=== PATIENT | male | born 1990 | race Caucasian/White ===

== ENCOUNTER 2016-11-30 14:11 | Emergency (ER) | payer OTHER ==
[~2016-11-30] VITALS: Ht 185.4 cm; Wt 131.5 kg
[~2016-11-30 14:11] MED LIST: ALBU8.5H3 INH; AZIT500T3 PO; PRED20TA PO; PRED50TA PO
[2016-11-30 14:14] VITALS: Ht 185.4 cm; Wt 131.5 kg
[2016-11-30] MEDS ORDERED: GUAI-637 PO (14:49)
[2016-11-30] MEDS ORDERED: OSLT75C PO (14:49)
[2016-11-30] MEDS ORDERED: FLUT9.9S NASAL (14:49)
[2016-11-30] MEDS ORDERED: LORA10TA3 PO (14:49)
[2016-11-30 15:04] VITALS: BP 118/77; PULSE 86; RESP 20; TEMP 98.3
--- NOTE | 2016-11-30 16:00 | ERD ---
ER Documentation Chief Complaint Date/Time DATE: 11/30/16 TIME: 15:55 Chief Complaint fever, bodyaches; cough x 2 days HPI This is a 26-year-old male who presents emergency department for fever, cough, rhinitis, rhinorrhea, generalized body aches and sore throat 2 days. Patient states symptoms started yesterday and worsened today. Patient did not check temperature at home however states he felt warm. Cough is dry nonproductive. No stridor or labored breathing. No shortness breath or difficulty breathing. No wheezing. Patient denies chest pain or chest pressure. Patient has sore throat however no difficulty swallowing or drooling. No sick contacts. Patient has history of asthma and uses his inhaler as needed. ROS All systems reviewed and are negative except as per history of present illness. Medications Home Meds Active Scripts Fluticasone Propionate (Flonase Allergy Relief) 9.9 Ml [place].susp, 1 SPRAY NASAL DAILY, #1 BOTTLE TO EACH NOSTRIL Prov:ED DEL VALLE NP 11/30/16 Loratadine* (Loratadine*) 10 Mg Tablet, 10 MG PO DAILY, #10 TAB Prov:ED DEL VALLE NP 11/30/16 Guaifenesin* (Robitussin*) 100 Mg/5 Ml Syrup, 200 MG PO Q4H Y for COUGH, #240 ML Prov:ED DEL VALLE NP 11/30/16 Oseltamivir Phosphate* (Tamiflu*) 75 Mg Capsule, 75 MG PO BID for 5 Days, CAP Prov:ED DEL VALLE NP 11/30/16 Albuterol Sulfate* (Proair HFA*) 8.5 Gm Hfa.aer.ad, 2 PUFF INH Q4, #1 INHALER Prov:ED DEL VALLE NP 06/15/16 Prednisone* (Prednisone*) 20 Mg Tab, 40 MG PO DAILY for 4 Days, TAB Prov:ED DEL VALLE NP 06/15/16 Prednisone* (Prednisone*) 50 Mg Tablet, 50 MG PO DAILY, #5 TAB Prov:ABBY PAINTER 11/25/15 Azithromycin* (Zithromax*) 500 Mg Tablet, 500 MG PO DAILY for 5 Days, TAB Prov:ABBY PAINTER 11/25/15 Albuterol Sulfate* (Proair HFA*) 8.5 Gm Hfa.aer.ad, 2 PUFF INH Q4, #1 INHALER Prov:ABBY PAINTER 11/25/15 PMhx/Soc Asthma History of Surgery: No Anesthesia Reaction: No Hx Neurological Disorder: No Hx Respiratory Disorders: Yes Hx Cardiac Disorders: No Hx Psychiatric Problems: No Hx Miscellaneous Medical Probl: No Hx Alcohol Use: No Hx Substance Use: No Hx Tobacco Use: No Physical Exam Vitals Vital Signs Date Time Temp Pulse Resp B/P Pulse Ox O2 Delivery O2 Flow Rate FiO2 11/30/16 15:04 98.3 86 20 118/77 98 Room Air 11/30/16 14:14 99.5 105 18 171/86 98 Physical Exam Const: Alert, [id number], oriented to person place and time. Head: Atraumatic Eyes: Normal Conjunctiva ENT: Normal External Ears, Nose and Mouth. TMs normal bilaterally. No erythema or exudate posterior pharynx. Neck: Full range of motion..~ No meningismus. Resp: Clear to auscultation bilaterally. No wheezing, rhonchi or crackles. Cardio: Regular rate and rhythm, no murmurs Abd: Soft, non tender, non distended. Normal bowel sounds Skin: No petechiae or rashes Back: No midline or flank tenderness Ext: No cyanosis, or edema Neur: Awake and alert Psych: Normal Mood and Affect Procedures/MDM MDM: 26-year-old male presents emergency department for influenza-like symptoms. Patient has fever, generalized body aches, cough, sore throat, rhinitis and rhinorrhea. No signs or symptoms of respiratory distress. Patient is talking in complete sentences. No chest pain or chest pressure. No wheezing. Temp of 99.5F upon arrival to ED. Oxygen saturation 98% on room air. Blood pressure 118/77 upon discharge. Patient appears stable and appropriate for outpatient management. Low suspicion for pneumonia, pleural effusion, otitis media, strep pharyngitis, epiglottitis and pneumothorax. Patient likely has influenza versus URI, viral. Patient is appropriate for outpatient management will be given prescription for Tamiflu, ibuprofen, Flonase and loratadine. Instructed patient to follow-up with primary care provider in the next 2-3 days for reassessment and additional management. Return to ED for any high fever, chest pain, difficulty breathing, shortness breath, wheezing, vomiting, diarrhea, abdominal pain or any new or worsening symptoms. Patient verbalizes understanding. All questions answered at discharge. Departure Diagnosis: Primary Impression: Influenza-like symptoms Condition: Stable Patient Instructions: Influenza (Adult) Referrals: [facility] YOU HAVE RECEIVED A MEDICAL SCREENING EXAM AND THE RESULTS INDICATE THAT YOU DO NOT HAVE A CONDITION THAT REQUIRES URGENT TREATMENT IN THE EMERGENCY DEPARTMENT. FURTHER EVALUATION AND TREATMENT OF YOUR CONDITION CAN WAIT UNTIL YOU ARE SEEN IN YOUR DOCTORS OFFICE WITHIN THE NEXT 1-2 DAYS. IT IS YOUR RESPONSIBILITY TO MAKE AN APPOINTMENT FOR FOLOW-UP CARE. IF YOU HAVE A PRIMARY DOCTOR --you should call your primary doctor and schedule an appointment IF YOU DO NOT HAVE A PRIMARY DOCTOR YOU CAN CALL OUR PHYSICIAN REFERRAL HOTLINE AT IF YOU CAN NOT AFFORD TO SEE A PHYSICIAN YOU CAN CHOSE FROM THE FOLLOWING [facility] [address] [facility] [address] [facility] [address] [facility] [address] [facility] [address] [facility]. [address] [facility]. [facility] YOU HAVE RECEIVED A MEDICAL SCREENING EXAM AND THE RESULTS INDICATE THAT YOU DO NOT HAVE A CONDITION THAT REQUIRES URGENT TREATMENT IN THE EMERGENCY DEPARTMENT. FURTHER EVALUATION AND TREATMENT OF YOUR CONDITION CAN WAIT UNTIL YOU ARE SEEN IN YOUR DOCTORS OFFICE WITHIN THE NEXT 1-2 DAYS. IT IS YOUR RESPONSIBILITY TO MAKE AN APPOINTMENT FOR FOLOW-UP CARE. IF YOU HAVE A PRIMARY DOCTOR --you should call your primary doctor and schedule and appointment IF YOU DO NOT HAVE A PRIMARY DOCTOR YOU CAN CALL OUR PHYSICIAN REFERRAL HOTLINE AT . IF YOU CAN NOT AFFORD TO SEE A PHYSICIAN YOU CAN CHOSE FROM THE FOLLOWING [facility] INSTITUTIONS: [facility] [address] [place] [address] [facility] [address] [place] [address] [facility] [address] [place] [address] Additional Instructions: Call your primary care doctor TOMORROW for an appointment during the next 2-3 days.See the doctor sooner or return here if your condition worsens before your appointment time. Return to ED for any high fever, chest pain, difficulty breathing, shortness breath, wheezing, vomiting, diarrhea, abdominal pain or any new or worsening symptoms. ED DEL VALLE NP Nov 30, 2016 16:00
== END 2016-11-30 15:05 | disposition home or self-care (01) ==
LOC: FTE 14:11
DX: R50.9 Fever, unspecified (principal); R05 Cough; J02.9 Acute pharyngitis, unspecified; R52 Pain, unspecified; J34.89 Other specified disorders of nose and nasal sinuses
CPT/HCPCS: 99283

== ENCOUNTER 2016-12-09 13:01 | Emergency (ER) | payer OTHER ==
[~2016-12-09] VITALS: Ht 185.4 cm; Wt 133.0 kg
[~2016-12-09 13:01] MED LIST changes: +FLUT9.9S NASAL; +GUAI-637 PO; +LORA10TA3 PO; +OSLT75C PO
[2016-12-09 13:02] VITALS: Ht 185.4 cm; Wt 133.0 kg
[2016-12-09] MEDS ORDERED: IBUP-1542 PO (13:38)
--- NOTE | 2016-12-09 14:11 | ERA ---
ER Documentation Chief Complaint Date/Time DATE: 12/09/16 TIME: 14:08 Chief Complaint COUGH, SORE THROAT AND BODYACHE X 1 WEEK HPI Patient is a 26-year-old male complaining of cough, pharyngitis lasting for 2 weeks. Patient was seen 9 days ago in the ER and diagnosed with influenza. Patient said he is taking all the medication and has had some relief of symptoms including fever. Pt denies weight loss, fevers, nausea, vomiting, diarrhea, constipation, hyperhidrosis, rigors, fatigue, dyspnea, chest pain on exertion, chest pain, malaise or depression. There are no other associated manifestations. Patient has taken Tylenol with moderate relief. Patient is also requesting a school note. ROS All systems reviewed and are negative except as per history of present illness. Medications Home Meds Active Scripts Ibuprofen* (Motrin*) 600 Mg Tab, 600 MG PO Q6H Y for PAIN AND OR ELEVATED TEMP, #30 TAB Prov:VINICIUS NATHAN PA-C 12/09/16 Fluticasone Propionate (Flonase Allergy Relief) 9.9 Ml [place].susp, 1 SPRAY NASAL DAILY, #1 BOTTLE TO EACH NOSTRIL Prov:ED DEL VALLE NP 11/30/16 Loratadine* (Loratadine*) 10 Mg Tablet, 10 MG PO DAILY, #10 TAB Prov:ED DEL VALLE NP 11/30/16 Guaifenesin* (Robitussin*) 100 Mg/5 Ml Syrup, 200 MG PO Q4H Y for COUGH, #240 ML Prov:ED DEL VALLE NP 11/30/16 Oseltamivir Phosphate* (Tamiflu*) 75 Mg Capsule, 75 MG PO BID for 5 Days, CAP Prov:ED DEL VALLE NP 11/30/16 Albuterol Sulfate* (Proair HFA*) 8.5 Gm Hfa.aer.ad, 2 PUFF INH Q4, #1 INHALER Prov:ED DEL VALLE NP 06/15/16 Prednisone* (Prednisone*) 20 Mg Tab, 40 MG PO DAILY for 4 Days, TAB Prov:ED DEL VALLE NP 06/15/16 Prednisone* (Prednisone*) 50 Mg Tablet, 50 MG PO DAILY, #5 TAB Prov:ABBY PAINTER 11/25/15 Azithromycin* (Zithromax*) 500 Mg Tablet, 500 MG PO DAILY for 5 Days, TAB Prov:ABBY PAINTER 11/25/15 Albuterol Sulfate* (Proair HFA*) 8.5 Gm Hfa.aer.ad, 2 PUFF INH Q4, #1 INHALER Prov:ABBY PAINTER 11/25/15 Allergies Allergies: Coded Allergies: No Known Allergy (Unverified , 12/09/16) PMhx/Soc Medical and Surgical Hx: pt denies Medical Hx, pt denies Surgical Hx History of Surgery: No Anesthesia Reaction: No Hx Neurological Disorder: No Hx Respiratory Disorders: Yes Hx Cardiac Disorders: No Hx Psychiatric Problems: No Hx Miscellaneous Medical Probl: No Hx Alcohol Use: No Hx Substance Use: No Hx Tobacco Use: No Smoking Status: Never smoker Physical Exam Vitals Vital Signs Date Time Temp Pulse Resp B/P Pulse Ox O2 Delivery O2 Flow Rate FiO2 12/09/16 13:02 97.7 91 18 144/68 98 Physical Exam Const: [] Head: Atraumatic Eyes: Normal Conjunctiva ENT: Normal External Ears, Nose and Mouth. Neck: Full range of motion..~ No meningismus. Resp: Clear to auscultation bilaterally Cardio: Regular rate and rhythm, no murmurs Abd: Soft, non tender, non distended. Normal bowel sounds Skin: No petechiae or rashes Back: No midline or flank tenderness Ext: No cyanosis, or edema Neur: Awake and alert Psych: Normal Mood and Affect Procedures/MDM Patient is a obese healthy-appearing 26-year-old male who presents with cough and pharyngitis for the past 2 weeks. Was recently seen in the ER and diagnosed with influenza. Patient has taken medications and influenza symptoms besides the cough and pharyngitis have subsided. At this time there is no management of the airway and no difficulty breathing. Physical exam was unremarkable except for an erythematous posterior oropharynx. Patient's tonsils were slightly inflamed. There are no exudates seen. Patient's lungs were clear in all lung molina bilaterally. The most likely diagnosis is a cough of viral origin most likely acute bronchitis. There are no GI symptoms in the reason for me to suspect any cardiac involvement at this time. Departure Diagnosis: Primary Impression: Pharyngitis, acute Qualified Code: J02.9 - Acute pharyngitis, unspecified etiology Additional Impressions: Acute bronchitis Qualified Code: J20.9 - Acute bronchitis, unspecified organism Pharyngitis Qualified Code: J02.9 - Pharyngitis, unspecified etiology Condition: Stable Patient Instructions: Acute Bronchitis Additional Instructions: Return to the emergency department if symptoms worsen. VINICIUS NATHAN PA-C Dec 09, 2016 14:11
== END 2016-12-09 14:25 | disposition home or self-care (01) ==
LOC: FTE 13:01
DX: J20.9 Acute bronchitis, unspecified (principal)
CPT/HCPCS: 99283

== ENCOUNTER 2017-06-21 06:39 | Emergency (ER) | payer OTHER ==
[~2017-06-21] VITALS: Ht 177.8 cm; Wt 135.5 kg
[~2017-06-21 06:39] MED LIST changes: +IBUP-1542 PO
[2017-06-21 06:41] VITALS: Ht 177.8 cm; Wt 135.5 kg
[2017-06-21] MEDS ORDERED: LIDOCAINE 2% (MDV) 20 ML INJ INJ ONE (07:30)
[2017-06-21] MEDS ORDERED: DEXAMETHASONE 10 MG/ML 1 ML INJ PO ONE (07:30)
[2017-06-21] MEDS ORDERED: AZITHROMYCIN 250 MG TAB PO ONE (07:30)
[2017-06-21] MEDS ORDERED: CEFTRIAXONE 250 MG INJ IM ONE (07:30)
[2017-06-21] MEDS ORDERED: PENI500T PO (08:10)
[2017-06-21] MEDS ORDERED: IBUP-1542 PO (08:10)
--- NOTE | 2017-06-30 16:55 | ERD ---
ER Documentation Chief Complaint Chief Complaint st,cough since thursday (DIAMANTE WILLOUGHBY) HPI This is a 26-year-old male presents to the ER with a sore throat and cough since Thursday. Sore throat is severe, worse whenever he swallows. Patient is also worried that he may have an STD. Had unprotected sexual intercourse, however he denies any symptoms such as discharge from his penis or urinary frequency or dysuria. Patient states he has also had a fever, nasal taking Tylenol however it has not resolved. Denies any chest pain, shortness of breath. (DIAMANTE WILLOUGHBY) ROS 12 point review of systems was done, all negative except per HPI. (DIAMANTE WILLOUGHBY) Medications Home Meds Active Scripts Ibuprofen* (Motrin*) 600 Mg Tab, 600 MG PO Q6, #30 TAB Prov:DIAMANTE WILLOUGHBY 06/21/17 Penicillin V Potassium* (Penicillin V K*) 500 Mg Tab, 500 MG PO BID for 10 Days , TAB Prov:DIAMANTE WILLOUGHBY 06/21/17 Ibuprofen* (Motrin*) 600 Mg Tab, 600 MG PO Q6H Y for PAIN AND OR ELEVATED TEMP, #30 TAB Prov:VINICIUS NATHAN PA-C 12/09/16 Fluticasone Propionate (Flonase Allergy Relief) 9.9 Ml [place].susp, 1 SPRAY NASAL DAILY, #1 BOTTLE TO EACH NOSTRIL Prov:ED DEL VALLE NP 11/30/16 Loratadine* (Loratadine*) 10 Mg Tablet, 10 MG PO DAILY, #10 TAB Prov:ED DEL VALLE NP 11/30/16 Guaifenesin* (Robitussin*) 100 Mg/5 Ml Syrup, 200 MG PO Q4H Y for COUGH, #240 ML Prov:ED DEL VALLE NP 11/30/16 Oseltamivir Phosphate* (Tamiflu*) 75 Mg Capsule, 75 MG PO BID for 5 Days, CAP Prov:ED DEL VALLE NP 11/30/16 Albuterol Sulfate* (Proair HFA*) 8.5 Gm Hfa.aer.ad, 2 PUFF INH Q4, #1 INHALER Prov:ED DEL VALLE NP 06/15/16 Prednisone* (Prednisone*) 20 Mg Tab, 40 MG PO DAILY for 4 Days, TAB Prov:ED DEL VALLE NP 06/15/16 Prednisone* (Prednisone*) 50 Mg Tablet, 50 MG PO DAILY, #5 TAB Prov:ABBY PAINTER 11/25/15 Azithromycin* (Zithromax*) 500 Mg Tablet, 500 MG PO DAILY for 5 Days, TAB Prov:ABBY PAINTER 11/25/15 Albuterol Sulfate* (Proair HFA*) 8.5 Gm Hfa.aer.ad, 2 PUFF INH Q4, #1 INHALER Prov:ABBY PAINTER 11/25/15 Allergies Allergies: Coded Allergies: No Known Allergy (Unverified , 12/09/16) PMhx/Soc History of Surgery: No Anesthesia Reaction: No Hx Neurological Disorder: No Hx Respiratory Disorders: Yes Hx Cardiac Disorders: No Hx Psychiatric Problems: No Hx Miscellaneous Medical Probl: No Hx Alcohol Use: No Hx Substance Use: No Hx Tobacco Use: No (DIAMANTE WILLOUGHBY) Physical Exam Physical Exam GENERAL: The patient is well-developed, well-nourished, in no acute distress. NECK: Cervical spine is non tender with no step off. Supple, no nuchal rigidity HEENT: Atraumatic. Pupils equal, round and reactive to light. Extraocular muscles are grossly intact. Conjunctivae pink, no discharge. Bilateral tympanic membranes are clear with no evidence of erythema, effusion or dulling of the light reflex. Tonsilar erythema with no exudates or uvular deviation. Clear rhinorrhea. RESPIRATORY: Clear to auscultation bilaterally. There are no rales, wheezes or rhonchi. HEART: Regular rate and rhythm. No murmurs, clicks, rubs or gallops. EXTREMITIES: No clubbing or cyanosis. Full range of motion. Grossly neurovascularly intact. NEUROLOGIC: Alert and oriented. Cranial nerves II through XII are intact. SKIN: There is no rash. The skin is warm and dry. (DIAMANTE WILLOUGHBY) Results 24 hrs Current Medications Medications (Trade) Dose Ordered Sig/Johnathon Route PRN Reason Start Time Stop Time Status Last Admin Dose Admin Azithromycin (Zithromax) 1,000 mg ONCE ONCE PO 06/21/17 07:30 06/21/17 07:31 DC 06/21/17 07:30 Ceftriaxone Sodium (Rocephin) 250 mg ONCE ONCE IM 06/21/17 07:30 06/21/17 07:31 DC 06/21/17 07:30 Lidocaine (Xylocaine 2% (Mdv) 20 ml) 20 ml ONCE ONCE INJ 06/21/17 07:30 10 07:31 DC 06/21/17 07:30 Dexamethasone (Decadron) 10 mg ONCE ONCE PO 06/21/17 07:30 06/21/17 07:31 DC 06/21/17 07:30 (MAGALY SHEPARD MD) Procedures/MDM This is a 26-year-old male presents to the ER with sore throat and cough, patient did test positive for strep throat he was given Decadron in the ER for swelling of his tonsils with no complications. Suspicion for peritonsillar abscess or retropharyngeal abscess is low, patient does not have any uvular deviation or kissing tonsils. He was prophylactically treated for chlamydia and gonorrhea with no complications. Patient is afebrile and well-appearing. Needs to follow-up with his primary care doctor within 1-2 days return to ER sooner if symptoms worsen. My medical decision making shared with the patient he understands and agrees with plan. (DIAMANTE WILLOUGHBY) Departure Diagnosis: Primary Impression: Strep throat Condition: Stable Patient Instructions: Strep Throat Additional Instructions: Call your primary care doctor TOMORROW for an appointment during the next 1-2 days.See the doctor sooner or return here if your condition worsens before your appointment time. DIAMANTE WILLOUGHBY Jun 30, 2017 16:55 MAGALY SHEPARD MD Jun 30, 2017 21:50
== END 2017-06-21 08:29 | disposition home or self-care (01) ==
LOC: FTE 06:39
DX: J02.0 Streptococcal pharyngitis (principal)
CPT/HCPCS: 87880; 96372; J0696; J1100; Z7502; Z7610

== ENCOUNTER 2017-08-01 16:48 | Emergency (ER) | payer OTHER ==
[~2017-08-01] VITALS: Ht 185.4 cm; Wt 135.0 kg
[~2017-08-01 16:48] MED LIST changes: +PENI500T PO
[2017-08-01 16:50] VITALS: Ht 185.4 cm; Wt 135.0 kg
--- NOTE | 2017-08-01 17:29 | ERD ---
ER Documentation Chief Complaint Chief Complaint pt bib family c/o fall last night at work c/o lower back pain HPI This 26 Yo male pt reports mechanical slip and fall last night at work. 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 pt hit a rigo with is right lumbar. now right low back pain and coccyx pain with movement and rest. pain improved with pot and IBU, pt need help getting up from the floor and was sent home in a uber . ROS All systems reviewed and are negative except as per history of present illness. Medications Home Meds Active Scripts Ibuprofen* (Motrin*) 600 Mg Tab, 600 MG PO Q6, #30 TAB Prov:BEBO CARDENASODY 08/01/17 Ibuprofen* (Motrin*) 600 Mg Tab, 600 MG PO Q6, #30 TAB Prov:DIAMANTE WILLOUGHBY 06/21/17 Penicillin V Potassium* (Penicillin V K*) 500 Mg Tab, 500 MG PO BID for 10 Days , TAB Prov:DIAMANTE WILLOUGHBY 06/21/17 Ibuprofen* (Motrin*) 600 Mg Tab, 600 MG PO Q6H Y for PAIN AND OR ELEVATED TEMP, #30 TAB Prov:VINICIUS NATHAN PA-C 12/09/16 Fluticasone Propionate (Flonase Allergy Relief) 9.9 Ml [place].susp, 1 SPRAY NASAL DAILY, #1 BOTTLE TO EACH NOSTRIL Prov:ED DEL VALLE NP 11/30/16 Loratadine* (Loratadine*) 10 Mg Tablet, 10 MG PO DAILY, #10 TAB Prov:ED DEL VALLE NP 11/30/16 Guaifenesin* (Robitussin*) 100 Mg/5 Ml Syrup, 200 MG PO Q4H Y for COUGH, #240 ML Prov:ED DEL VALLE NP 11/30/16 Oseltamivir Phosphate* (Tamiflu*) 75 Mg Capsule, 75 MG PO BID for 5 Days, CAP Prov:ED DEL VALLE NP 11/30/16 Albuterol Sulfate* (Proair HFA*) 8.5 Gm Hfa.aer.ad, 2 PUFF INH Q4, #1 INHALER Prov:ED DEL VLALE NP 06/15/16 Prednisone* (Prednisone*) 20 Mg Tab, 40 MG PO DAILY for 4 Days, TAB Prov:ED DEL VALLEShade PADILLA 06/15/16 Prednisone* (Prednisone*) 50 Mg Tablet, 50 MG PO DAILY, #5 TAB Prov:ABBY PAINTER 11/25/15 Azithromycin* (Zithromax*) 500 Mg Tablet, 500 MG PO DAILY for 5 Days, TAB Prov:ABBY PAINTER 11/25/15 Albuterol Sulfate* (Proair HFA*) 8.5 Gm Hfa.aer.ad, 2 PUFF INH Q4, #1 INHALER Prov:ABBY PAINTER 11/25/15 Allergies Allergies: Coded Allergies: coconut (Verified Allergy, Unknown, 08/01/17) PMhx/Soc Medical and Surgical Hx: pt denies Medical Hx, pt denies Surgical Hx History of Surgery: No Anesthesia Reaction: No Hx Neurological Disorder: No Hx Respiratory Disorders: Yes Hx Cardiac Disorders: No Hx Psychiatric Problems: No Hx Miscellaneous Medical Probl: No Hx Alcohol Use: No Hx Substance Use: Yes (marijuana, last use 07/31/17) Hx Tobacco Use: No Smoking Status: Never smoker Physical Exam Vitals Vital Signs Date Time Temp Pulse Resp B/P Pulse Ox O2 Delivery O2 Flow Rate FiO2 08/01/17 16:50 97.7 65 16 137/83 97 Vitals stable, triage notes reviewed Physical Exam Const: Well-nourished well-appearing well-hydrated 26-year-old male patient no acute distress Head: Atraumatic hematoma, abrasion, or laceration Neck: Full range of motion Resp: Respirations even and unlabored, no respiratory distress Skin: No petechiae or rashes no ecchymosis, abrasion, laceration Back Exam: Skin: [No bruising or rash] Compartments: [Soft] Motor: [Normal flexion and extension of bilateral hip/knee/ ankle/foot], straight leg rises even equivocal at 80 Sensation: [Intact to light touch throughout] Bones: [No midline TTP] verbal paraspinal tenderness on right lumbar Ext: No cyanosis, or edema Neur: Awake and alert Psych: Normal Mood and Affect Results 24 hrs Current Medications Medications (Trade) Dose Ordered Sig/Johnathon Route PRN Reason Start Time Stop Time Status Last Admin Dose Admin Ibuprofen (Motrin) 600 mg ONCE ONCE PO 08/01/17 17:30 08/01/17 17:31 DC 08/01/17 17:41 Acetaminophen (Tylenol Tab) 650 mg ONCE ONCE PO 08/01/17 17:30 08/01/17 17:31 DC 08/01/17 17:41 Dexamethasone (Decadron) 10 mg ONCE ONCE PO 08/01/17 20:30 08/01/17 20:31 DC 08/01/17 20:15 Procedures/MDM PROCEDURE: XR Lumbar Spine. CLINICAL INDICATION: Fall, pain TECHNIQUE: AP, lateral and cone-down lateral view of the lumbar spine were obtained. COMPARISON: No prior studies are available for comparison. FINDINGS: There is straightening of the lumbar spine. There is normal vertebral mineralization and alignment. No fracture or subluxation is seen. The disc spaces are normal in appearance. The posterior elements are unremarkable. The soft tissues appear normal. IMPRESSION: Straightening of the lumbar spine. No evidence of fracture. Electronically viewed and signed by Claudio Regan, Physician on 08/01/2017 18: 51 26-year-old male patient presents to emergency department for evaluation of back pain, patient reportedly injured himself at work yesterday, missed a step, spleen legs apart landing on his coccyx and hitting a rigo with the left side of his lumbar spine. Patient has pain regardless of movement, worse with sitting and standing, straight leg rises are even equivocal at 80 bilaterally. Emergency room course today includes radiographic imaging to rule out any spinal fracture, and pain control with Tylenol and ibuprofen, patient x-ray positive for straightening suggestive of spasm, plan to treat with 10 mg of dexamethasone before discharge, sent home with ibuprofen, follow-up with primary care physician for referral to physical therapy. Return to emergency department for alteration in bowel or bladder, difficulty ambulating. Patient is stable with no new complaints during ER course, clinically there is no current evidence to suggest cauda equina syndrome, spinal abscess, vertebral fracture, compression fracture or any other emergent condition appearing to require further evaluation or hospitalization. I feel the patient is stable for discharge at this time. I have discussed results, examination findings, the treatment plan with the patient and family present prior to discharge. Indications for emergent reevaluation, side effects of medication were also discussed. All questions were answered. Patient verbalizes understanding and agrees with plan of care. Departure Diagnosis: Primary Impression: Lumbar sprain Encounter type: initial encounter Qualified Code: S33.5XXA - Lumbar sprain, initial encounter Condition: Good Patient Instructions: Back Sprain/Strain Additional Instructions: Thank you for for coming to [facility] for your care today. Please ask your nurse or provider if you have questions about your care today and do not leave until all your questions have been answered. Please use any medications given as directed and follow-up with your doctor (or the doctor you were referred to) in the next 2-3 days. If you do not have a primary care doctor you may follow up at the [facility] (listed below). You may also use motrin and tylenol as needed for fever and/or pain unless instructed otherwise by your provider or nurse. Indications for more urgent follow-up have been discussed, but you may return to the Emergency Department at ANY time for any worrisome or worsening symptoms. If you have abdominal pain, please know that no test or exam you received is perfect and you should follow up within 8 hours for continued pain. If you had any imaging studies today, such as an X-Ray or CT Scan, these studies will be reviewed later by a radiologist. You will be called if there are important findings that were not identified today, so make sure the contact information you provided at registration is correct. If you received any narcotic pain control medicine today, such as Vicodin, Morphine or Dilaudid, your coordination and judgment may be affected for a number of hours. Please do not drive or operate heavy machinery, and you may want someone to assist you at home. If you were given a prescription for narcotic medication, be aware that it is very addictive- use sparingly and only if necessary. NAIMA CARDENAS Aug 01, 2017 17:29
[2017-08-01] MEDS ORDERED: IBUPROFEN 600 MG TAB PO ONE (17:30)
[2017-08-01] MEDS ORDERED: ACETAMINOPHEN 325 MG TAB PO ONE (17:30)
--- NOTE | 2017-08-01 18:51 | RADRPT ---
PROCEDURE: XR Lumbar Spine. CLINICAL INDICATION: Fall, pain TECHNIQUE: AP, lateral and cone-down lateral view of the lumbar spine were obtained. COMPARISON: No prior studies are available for comparison. FINDINGS: There is straightening of the lumbar spine. There is normal vertebral mineralization and alignment. No fracture or subluxation is seen. The disc spaces are normal in appearance. The posterior elements are unremarkable. The soft tissues appear normal. IMPRESSION: Straightening of the lumbar spine. No evidence of fracture. Physician Enma Date Time Electronically viewed and signed by Physician Enma on 08/01/2017 18:51 CS/
[2017-08-01] MEDS ORDERED: IBUP-1542 PO (20:00)
[2017-08-01] MEDS ORDERED: DEXAMETHASONE 10 MG/ML 1 ML INJ PO ONE (20:30)
== END 2017-08-01 20:35 | disposition home or self-care (01) ==
LOC: FTE 16:48
DX: S33.5XXA Sprain of ligaments of lumbar spine, initial encounter (principal); W01.0XXA Fall on same level from slipping, tripping and stumbling without subsequent striking against object, initial encounter; Y92.89 Other specified places as the place of occurrence of the external cause
CPT/HCPCS: 72100; J1100; Z7502; Z7610

== ENCOUNTER 2017-08-15 14:11 | Emergency (ER) | payer OTHER ==
[~2017-08-15] VITALS: Ht 185.4 cm; Wt 136.0 kg
[2017-08-15 14:13] VITALS: Ht 185.4 cm; Wt 136.0 kg
[2017-08-15] MEDS ORDERED: IBUP-1542 PO (15:35)
[2017-08-15] MEDS ORDERED: AMOX500C2 PO (15:36)
--- NOTE | 2017-08-15 15:41 | ERD ---
ER Documentation Chief Complaint Chief Complaint sore throat x 2 days HPI 26-year-old male presents with sore throat for last 2 days. He denies chills, fevers, cough, vomiting. ROS All systems reviewed and are negative except as per history of present illness. Medications Home Meds Active Scripts Amoxicillin* (Amoxicillin*) 500 Mg Cap, 500 MG PO TID for 10 Days, CAP Prov:SNEHAL BARRIOS MD 08/15/17 Ibuprofen* (Motrin*) 600 Mg Tab, 600 MG PO Q6, #30 TAB Prov:SNEHAL BARRIOS MD 08/15/17 Ibuprofen* (Motrin*) 600 Mg Tab, 600 MG PO Q6, #30 TAB Prov:RONALDNAIMA 08/01/17 Ibuprofen* (Motrin*) 600 Mg Tab, 600 MG PO Q6, #30 TAB Prov:DIAMANTE WILLOUGHBY 06/21/17 Penicillin V Potassium* (Penicillin V K*) 500 Mg Tab, 500 MG PO BID for 10 Days , TAB Prov:DIAMANTE WILLOUGHBY 06/21/17 Ibuprofen* (Motrin*) 600 Mg Tab, 600 MG PO Q6H Y for PAIN AND OR ELEVATED TEMP, #30 TAB Prov:VINICIUS NATHAN PA-C 12/09/16 Fluticasone Propionate (Flonase Allergy Relief) 9.9 Ml [place].susp, 1 SPRAY NASAL DAILY, #1 BOTTLE TO EACH NOSTRIL Prov:ED DEL VALLE NP 11/30/16 Loratadine* (Loratadine*) 10 Mg Tablet, 10 MG PO DAILY, #10 TAB Prov:ED DEL VALLE NP 11/30/16 Guaifenesin* (Robitussin*) 100 Mg/5 Ml Syrup, 200 MG PO Q4H Y for COUGH, #240 ML Prov:ED DEL VALLE NP 11/30/16 Oseltamivir Phosphate* (Tamiflu*) 75 Mg Capsule, 75 MG PO BID for 5 Days, CAP Prov:DE DEL VALLE NP 11/30/16 Albuterol Sulfate* (Proair HFA*) 8.5 Gm Hfa.aer.ad, 2 PUFF INH Q4, #1 INHALER Prov:ED DEL VALLE NP 06/15/16 Prednisone* (Prednisone*) 20 Mg Tab, 40 MG PO DAILY for 4 Days, TAB Prov:ED DEL VALLE SOURCING MANAGER 06/15/16 Prednisone* (Prednisone*) 50 Mg Tablet, 50 MG PO DAILY, #5 TAB Prov:ABBY PAINTER 11/25/15 Azithromycin* (Zithromax*) 500 Mg Tablet, 500 MG PO DAILY for 5 Days, TAB Prov:ABBY PAINTER 11/25/15 Albuterol Sulfate* (Proair HFA*) 8.5 Gm Hfa.aer.ad, 2 PUFF INH Q4, #1 INHALER Prov:ABBY PAINTER 11/25/15 Allergies Allergies: Coded Allergies: coconut (Verified Allergy, Unknown, 08/15/17) PMhx/Soc Medical and Surgical Hx: pt denies Medical Hx, pt denies Surgical Hx History of Surgery: No Anesthesia Reaction: No Hx Neurological Disorder: No Hx Respiratory Disorders: Yes Hx Cardiac Disorders: No Hx Psychiatric Problems: No Hx Miscellaneous Medical Probl: No Hx Alcohol Use: No Hx Substance Use: Yes (marijuana, last use 08/12/17) Hx Tobacco Use: No Smoking Status: Never smoker Physical Exam Vitals Vital Signs Date Time Temp Pulse Resp B/P Pulse Ox O2 Delivery O2 Flow Rate FiO2 08/15/17 14:13 97.2 99 18 148/81 97 Physical Exam Const: [], [id number]. Normal voice. Head: Atraumatic Eyes: Normal Conjunctiva ENT: Normal External Ears, Nose and Mouth. Tonsils 3+ with erythema. Uvula midline. Slight bulging of the right peritonsillar area. Uvula midline. Airway patent. Tender anterior cervical lymphadenitis. Neck: Full range of motion..~ No meningismus. Resp: Clear to auscultation bilaterally Cardio: Regular rate and rhythm, no murmurs Abd: Soft, non tender, non distended. Normal bowel sounds Skin: No petechiae or rashes Back: No midline or flank tenderness Ext: No cyanosis, or edema Neur: Awake and alert Psych: Normal Mood and Affect Results 24 hrs Current Medications Medications (Trade) Dose Ordered Sig/Johnathon Route PRN Reason Start Time Stop Time Status Last Admin Dose Admin Ibuprofen (Motrin) 600 mg ONCE ONCE PO 08/15/17 16:00 12/16/17 16:01 Prednisone (Prednisone) 40 mg ONCE ONCE PO 08/15/17 16:00 08/15/17 16:01 Procedures/MDM She presents with acute pharyngitis symptoms. Some slight bulging of the right peritonsillar area but no current evidence of abscess to be drained. Patient shows no signs of sepsis or airway obstruction. He was given prednisone 40 mg and ibuprofen here and will treated with amoxicillin ibuprofen at home and instructions to recheck in 2 days for worsening symptoms, difficulty breathing, or worsening symptoms or primary doctor this week Departure Diagnosis: Primary Impression: Sore throat Condition: Stable Patient Instructions: Pharyngitis, Strep (Presumed) Additional Instructions: Recheck for new or worsening symptoms or primary care doctor. SNEHAL BARRIOS MD Aug 15, 2017 15:41
[2017-08-15] MEDS ORDERED: IBUPROFEN 600 MG TAB PO ONE (16:00)
[2017-08-15] MEDS ORDERED: predniSONE 20 MG TAB PO ONE (16:00)
== END 2017-08-15 16:09 | disposition home or self-care (01) ==
LOC: FTE 14:11
DX: J02.9 Acute pharyngitis, unspecified (principal)
CPT/HCPCS: J7512; Z7502; Z7610; 99283

== ENCOUNTER 2017-12-03 22:16 | Emergency (ER) | END 2017-12-04 04:02 | disposition home or self-care (01) ==

== ENCOUNTER 2018-12-02 08:23 | Emergency (ER) | payer OTHER ==
[~2018-12-02] VITALS: Ht 185.4 cm; Wt 138.0 kg
[~2018-12-02 08:23] MED LIST changes: +ACET-141 PO; -ALBU8.5H3 INH; +ALBU8.5H8 INH; +AMOX500C2 PO; +ONDA4TAB13 PO; +OSEL75CA23 PO; -OSLT75C PO
[2018-12-02 08:28] VITALS: BP 139/71; PULSE 79; RESP 16; Ht 185.4 cm; Wt 138.0 kg
[2018-12-02] MEDS ORDERED: IBUP-1542 PO (08:47)
[2018-12-02] MEDS ORDERED: NPH10OT LEFT EAR (08:47)
--- NOTE | 2018-12-02 08:49 | ERD ---
ER Documentation Chief Complaint Chief Complaint left ear pain and fever x 2 weeks HPI 28-year-old male presents with left ear pain for last 2 weeks. He may have had a fever yesterday. He has some mild discharge. He denies congestion, cough, chest pain, shortness of breath, abdominal pain. ROS All systems reviewed and are negative except as per history of present illness. Medications Home Meds Active Scripts Ibuprofen* (Motrin*) 600 Mg Tab, 600 MG PO Q6, #20 TAB Prov:SNEHAL BARRIOS MD 12/02/18 Neomycin/Polymyxin/Hydrocort* (Cortisporin* Otic) 10 Ml Susp, 4 DROP LEFT EAR QID for 7 Days, EA Prov:SNEHAL BARRIOS MD 12/02/18 Ondansetron Hcl* (Zofran*) 4 Mg Tab, 4 MG PO Q4H PRN for NAUSEA AND OR VOMITING, #15 TAB Prov:DIAMANTE WILLOUGHBY 12/04/17 Acetaminophen* (Acetaminophen*) 500 MG Extra Strength Tablet, 1000 MG PO Q8H PRN for PAIN AND OR ELEVATED TEMP for 5 Days, TAB Prov:DIAMANTE WILLOUGHBY 12/04/17 Ibuprofen* (Motrin*) 600 Mg Tab, 600 MG PO Q6, #30 TAB Prov:DIAMANTE WILLOUGHBY 12/04/17 Amoxicillin* (Amoxicillin*) 500 Mg Cap, 500 MG PO TID for 10 Days, CAP Prov:SNEHAL BARRIOS MD 08/15/17 Ibuprofen* (Motrin*) 600 Mg Tab, 600 MG PO Q6, #30 TAB Prov:SNEHAL BARRIOS MD 08/15/17 Ibuprofen* (Motrin*) 600 Mg Tab, 600 MG PO Q6, #30 TAB Prov:RONALD,NAIMA 08/01/17 Ibuprofen* (Motrin*) 600 Mg Tab, 600 MG PO Q6, #30 TAB Prov:DIAMANTE WILLOUGHBY 06/21/17 Penicillin V Potassium* (Penicillin V K*) 500 Mg Tab, 500 MG PO BID for 10 Days, TAB Prov:DIAMANTE WILLOUGHBY 06/21/17 Ibuprofen* (Motrin*) 600 Mg Tab, 600 MG PO Q6H PRN for PAIN AND OR ELEVATED TEMP, #30 TAB Prov:VINICIUS NATHAN PA-C 12/09/16 Fluticasone Propionate (Flonase Allergy Relief) 9.9 Ml [place].susp, 1 SPRAY NASAL DAILY, #1 BOTTLE TO EACH NOSTRIL Prov:ED DEL VALLE NP 11/30/16 Loratadine* (Loratadine*) 10 Mg Tablet, 10 MG PO DAILY, #10 TAB Prov:ED DEL VALLE NP 11/30/16 Guaifenesin* (Robitussin*) 100 Mg/5 Ml Syrup, 200 MG PO Q4H PRN for COUGH, #240 ML Prov:ED DEL VALLE NP 11/30/16 Oseltamivir Phosphate* (Tamiflu*) 75 Mg Capsule, 75 MG PO BID for 5 Days, CAP Prov:ED DEL VALLE NP 11/30/16 Albuterol Sulfate* (Proair HFA*) 8.5 Gm Hfa.aer.ad, 2 PUFF INH Q4, #1 INHALER Prov:ED DEL VALLE NP 06/15/16 Prednisone* (Prednisone*) 20 Mg Tab, 40 MG PO DAILY for 4 Days, TAB Prov:ED DEL VALLE NP 06/15/16 Prednisone* (Prednisone*) 50 Mg Tablet, 50 MG PO DAILY, #5 TAB Prov:ABBY PAINTER MD 11/25/15 Azithromycin* (Zithromax*) 500 Mg Tablet, 500 MG PO DAILY for 5 Days, TAB Prov:ABBY PAINTER MD 11/25/15 Albuterol Sulfate* (Proair HFA*) 8.5 Gm Hfa.aer.ad, 2 PUFF INH Q4, #1 INHALER Prov:ABBY PAINTER MD 11/25/15 Allergies Allergies: Coded Allergies: coconut (Verified Allergy, Unknown, 12/04/17) PMhx/Soc Medical and Surgical Hx: pt denies Surgical Hx History of Surgery: No Anesthesia Reaction: No Hx Neurological Disorder: No Hx Respiratory Disorders: Yes (asthma) Hx Cardiac Disorders: No Hx Psychiatric Problems: No Hx Miscellaneous Medical Probl: No Hx Alcohol Use: No Hx Substance Use: Yes (marijuana) Hx Tobacco Use: No Smoking Status: Never smoker Physical Exam Vitals Vital Signs Date Temp Pulse Resp B/P (MAP) Pulse Ox O2 O2 Flow FiO2 Time Delivery Rate 12/02/18 97.1 79 16 139/71 98 08:28 (93) Physical Exam Const: No acute distress Head: Atraumatic Eyes: Normal Conjunctiva ENT: Normal External Ears, Nose and Mouth. There is some exudate in redness in the left external auditory canal. TM normal. No mastoid tenderness. Airway patent. Oropharynx normal. Neck: Full range of motion. No meningismus. Resp: Clear to auscultation bilaterally Cardio: Regular rate and rhythm, no murmurs Abd: Soft, non tender, non distended. Normal bowel sounds Skin: No petechiae or rashes Back: No midline or flank tenderness Ext: No cyanosis, or edema Neur: Awake and alert Psych: Normal Mood and Affect Procedures/MDM Patient presents with signs and symptoms of left otitis externa without signs of malignant otitis externa, facial cellulitis, mastoiditis, airway obstruction, additional complications. Will treat with Cortisporin, ibuprofen, primary care follow-up and return precautions. The patient was stable with no new complaints during the ER course. Clinically, there is no current evidence to suggest meningitis, sepsis, acute abdomen, pneumonia, stroke, acute coronary syndrome, pulmonary embolism, aortic dissection or any other emergent condition appearing to require further evaluation or hospitalization. Patient counseled regarding my diagnostic impression and care plan. Prior to discharge all questions answered. Pt agrees with treatment plan and understands strict return precautions. Pt is instructed to follow up with primary care provider within 24- 48 hours. Precautionary instructions provided including instructions to return to the ER if not improving or for any worsening or changing symptoms or concerns. Departure Diagnosis: Primary Impression: Otitis externa Otitis externa type: unspecified type Chronicity: acute Laterality: left Qualified Codes: H60.502 - Unspecified acute noninfective otitis externa, left ear Additional Impression: Left ear pain Condition: Stable Patient Instructions: External Ear Infection (Adult) Additional Instructions: Recheck for new or worsening symptoms or with primary care doctor. SNEHAL BARRIOS MD Dec 02, 2018 08:49
== END 2018-12-02 08:53 | disposition home or self-care (01) ==
LOC: FTE 08:23
DX: H60.502 Unspecified acute noninfective otitis externa, left ear (principal); J45.909 Unspecified asthma, uncomplicated
CPT/HCPCS: 99283